=== PATIENT | male | born 1985 | race Caucasian/White ===

== ENCOUNTER 2020-11-05 01:00 | Emergency (ER) | payer MEDICARE ==
[~2020-11-05] VITALS: Ht 177.8 cm; Wt 68.2 kg
[~2020-11-05 01:00] MED LIST: ADDERALL10 MG PO; ALBUTEROL SULFAT8 MG; ALPRAZOLAM0.5 M1 PO; AMITRIPTYLINE25 MG PO; CARAFATE1 GM PO; CHANTIX START M1 TAB PO; CYCLOBENZAPRINE10 M1 PO; CYCLOBENZAPRINE10 MG PO; DEXTROAMPHETAMI10 M1; ETODOLAC400 MG PO; FLEXERIL 1010 MG/TAB PO; FLUOXETINE20 MG PO; IMITREX 25MG TA25 MG PO; INDERAL 10MG10 MG PO; KLONOPIN 1MG1 MG PO; METOCLOPRAMIDE10 M1 PO; MINIPRESS2 MG PO; NEURONTIN800 MG/TAB PO; NICOTINE; NORCO 325 MG-51 TAB PO; NORCO 325 MG-7.1 TAB PO; OMEPRAZOLE20 MG PO; PEPCID 20MG TAB20 MG PO; PHENERGAN 25 TA25 MG PO; PHENERGAN25 MG RC; PHENYTOIN100 MG PO; PRIL40; QUETIAPINE FUM200 MG PO; REMERON30 MG PO; SEROQUEL 200MG200 MG PO; SUMATRIPTA6 MG/0.51 SC; TOPAMAX 100MG100 M1; TRAMADOL50 MG PO; ULTRAM 50MG TAB50 MG PO; ULTRAM50 MG PO
[2020-11-05 01:02] VITALS: TEMP 97.8
[2020-11-05 01:40] LABS: BASO # 0.1 (0.0-0.2); BASO % 0.6 % (0.0-2.0); EOS # 0.1 (0.0-0.7); EOS % 0.5 % (0-4.0); GRAN # 5.1 (1.4-6.5); HEMATOCRIT 45.2 % (42.0-52.0); HEMOGLOBIN 15.2 g/dl (13.5-18.0); LYMPH # 4.2 (1.2-3.4); LYMPH % 39.3 % (20.0-51.0); MEAN CELL VOLUME 85 fl (80.0-100.0); MEAN CORPUSCULAR HEMOGLOBIN 28 pg (27.0-31.0); MEAN CORPUSCULAR HGB CONC 34 g/dl (33.0-37.0); MEAN PLATELET VOLUME 10.3 fl (7.4-10.4); MONO # 1.3 (0.1-0.6); MONO % 12.4 % (1.7-9.3); PLATELET COUNT 245 K/mm3 (130-400); RED BLOOD COUNT 5.35 M/mm3 (4.20-5.60); REDCELL DISTRIBUTION WIDTH-CV 12.5 % (11.5-14.5)
[2020-11-05 01:58] LABS: ALCOHOL(ethanol),MEDICAL < 10 mg/dL
[2020-11-05 03:06] LABS: ACETAMINOPHEN < 10 ug/mL (10-30); ALANINE AMINOTRANSFERASE 17 U/L (4-49); ALBUMIN 4.2 gm/dL (3.5-5.0); ALKALINE PHOSPHATASE 66 U/L (50-136); ANION GAP 8 mmol/L (7-16); AST,SGOT 25 U/L (15-37); BILIRUBIN,TOTAL 0.4 mg/dL (0.0-1.0); BLOOD UREA NITROGEN 29 mg/dL (9-20); CARBON DIOXIDE 27 mmol/L (22-30); CHLORIDE 105 mmol/L (98-107); CREATININE, serum 0.9 (0.66-1.25); GLUCOSE 140 mg/dL (74-106); POTASSIUM 3.6 mmol/L (3.4-5.0); PROLACTIN 28.5 ng/mL (3.7-17.9); SODIUM 140 mmol/L (137-145); TOTAL PROTEIN 6.9 gm/dL (6.4-8.2)
[2020-11-05 03:07] LABS: SALICYLATE 1.6 mg/dL
[2020-11-05 13:41] LABS: TRICYCLIC ANTIDEPRESS URINE NEGATIVE
[2020-11-05 14:51] VITALS: BP 114/93; PULSE 112
== END 2020-11-05 14:51 | disposition home or self-care (01) ==
LOC: COL.ER 01:00 → EDBD 01:04 → COL.ER 14:51
PROVIDERS: Emergency Medicine
DX: G40.909 Epilepsy, unspecified, not intractable, without status epilepticus (principal); F43.10 Post-traumatic stress disorder, unspecified; Z87.820 Personal history of traumatic brain injury; Z88.6 Allergy status to analgesic agent
CPT/HCPCS: J7030

== ENCOUNTER 2022-02-16 04:47 | Emergency (ER) | payer OTHER, MEDICARE ==
[~2022-02-16] VITALS: Ht 182.9 cm; Wt 84.1 kg
[2022-02-16 04:52] VITALS: BP 140/64; PULSE 107; TEMP 99
== END 2022-02-16 05:30 | disposition home or self-care (01) ==
LOC: COL.ER 04:47
DX: M25.511 Pain in right shoulder (principal); F17.200 Nicotine dependence, unspecified, uncomplicated